=== PATIENT | male | born 1955 | race Hispanic/Latino ===

== ENCOUNTER → 2022-04-18 | Outpatient (CLI) | payer MEDICARE | END | disposition home or self-care (01) | LOC: RAH 09:38 | PROVIDERS: ATTEND Nurse Practitioner Adult Health | DX: I73.9 Peripheral vascular disease, unspecified (principal); E83.52 Hypercalcemia | CPT/HCPCS: 93922 ==

== ENCOUNTER → 2022-05-04 | Outpatient (CLI) | payer MEDICARE | END | disposition home or self-care (01) | LOC: RAH 07:50 | PROVIDERS: ATTEND Nurse Practitioner Adult Health | DX: I70.203 Unspecified atherosclerosis of native arteries of extremities, bilateral legs (principal); I65.22 Occlusion and stenosis of left carotid artery | CPT/HCPCS: 93925 ==